=== PATIENT | male | born 1990 | race Caucasian/White ===

== ENCOUNTER 2017-12-13 16:05 | Emergency (ER) | payer SELFPAY ==
[2017-12-13 16:15] VITALS: BP 142/107; PULSE 91; TEMP 98.1; BMI 33.2
--- NOTE | 2017-12-13 17:15 | PDOC ---
History of Present Illness - General Chief Complaint: Injury Stated Complaint: HEADACHE Time Seen by Provider: 12/13/17 17:09 History Source: Patient Exam Limitations: No Limitations - History of Present Illness Initial Comments: 12/13/17 17:13 States tripped and fell 2 weeks ago falling onto right hand continues to complain of pain, swell to the lateral aspect of hand Occurred: reports: last week Severity: reports: mild, moderate Pain Location: reports: upper extremity (right hand ) Past History - Travel Traveled outside of the country in the last 30 days: No Close contact w/someone who was outside of country & ill: No - Past Medical History Allergies/Adverse Reactions: Allergies Allergy/AdvReac Type Severity Reaction Status Date / Time No Known Allergies Allergy Verified 12/13/17 16:15 Home Medications: Ambulatory Orders NK [No Known Home Medication] 12/13/17 COPD: No - Suicide/Smoking/Psychosocial Hx Smoking History: Never smoked Review of Systems - Review of Systems Able to Perform ROS?: Yes Is the patient limited Hungarian proficient: Yes Constitutional: Yes: Symptoms Reported, See HPI HEENTM: No: Symptoms Reported Musculoskeletal: Yes: Symptoms Reported Integumentary: Yes: Symptoms Reported *Physical Exam - Vital Signs Last Vital Signs Temp Pulse Resp BP Pulse Ox 98.1 F 91 H 18 142/107 99 12/13/17 16:13 12/13/17 16:13 12/13/17 16:13 12/13/17 16:13 12/13/17 17:00 - Physical Exam General Appearance: Yes: Nourished, Appropriately Dressed, Mild Distress, Moderate Distress HEENT: positive: ERICK, Normal ENT Inspection, TMs Normal, Pharynx Normal Neck: positive: Supple. negative: Tender Respiratory/Chest: positive: Lungs Clear, Normal Breath Sounds Cardiovascular: positive: Regular Rate Gastrointestinal/Abdominal: positive: Normal Bowel Sounds, Soft. negative: Tender Musculoskeletal: positive: Normal Inspection Extremity: positive: Normal Capillary Refill, Swelling. negative: Normal Range of Motion Integumentary: positive: Normal Color, Dry, Swelling, Ecchymosis Neurologic: positive: manager mobile II-XII NML intact, Fully Oriented, Alert, Normal Mood/ Affect Progress Note - Progress Note Progress Note: Comminuted fracture of distal aspect of the fifth metacarpal right hand, must sling on, will follow-up with Dr. Braun in the next 2 days *DC/Admit/Observation/Transfer Diagnosis at time of Disposition: Fracture, boxers Qualifiers: Encounter type: initial encounter Fracture type: closed Qualified Code(s): S62.339A - Displaced fracture of neck of unspecified metacarpal bone, initial encounter for closed fracture - Discharge Dispostion Disposition: HOME Condition at time of disposition: Stable Admit: No - Referrals Referrals: González Braun MD [Staff Physician] - - Patient Instructions Printed Discharge Instructions: DI for Boxer's Fracture Additional Instructions: Rest, ice to area on and off for 15 minutes 4-6 times a day Avoid heavy lifting or exercise until pain and swelling is resolved or until further directed Keep area highly elevated to reduce swelling Use splints/Micah wrap as directed Followup with orthopedist in one to 2 days if not improving, if significantly improved may wait one week for followup with orthopedist May use ibuprofen 2-200 mg tablets every 6 hours as needed for pain - Post Discharge Activity Forms/Work/School Notes: Back to Work
== END 2017-12-13 17:56 | disposition home or self-care (01) ==
LOC: JERFT 16:05
DX: S62.396A Other fracture of fifth metacarpal bone, right hand, initial encounter for closed fracture (principal); W19.XXXA Unspecified fall, initial encounter; Y93.89 Activity, other specified; Y92.89 Other specified places as the place of occurrence of the external cause; Y99.8 Other external cause status
CPT/HCPCS: 73130-TC-RT-FY; 99282-25